=== PATIENT | male | born 1980 | race Caucasian/White ===

== ENCOUNTER → 2018-02-06 | Outpatient (CLI) | payer SELFPAY ==
[2018-02-06 16:07] LABS: BASOPHILS # (AUTO) 0.1 X10^3/uL (0.0-0.1); BASOPHILS % (AUTO) 0.7 % (0.2-1.0); EOSINOPHILS # (AUTO) 0.1 x10^3/uL (0.0-0.2); EOSINOPHILS % (AUTO) 1.3 % (0.9-2.9); HEMATOCRIT 45.5 % (42.0-54.0); HEMOGLOBIN 15.8 g/dL (13.5-18.0); LYMPHOCYTES # (AUTO) 1.9 X10^3/uL (1.3-2.9); LYMPHOCYTES % (AUTO) 24.6 % (21.0-51.0); MEAN CORPUSCULAR HEMOGLOBIN 29.7 pg (27.0-34.0); MEAN CORPUSCULAR HGB CONC 34.8 g/dL (33.0-35.0); MEAN CORPUSCULAR VOLUME 85.4 fL (80.0-100.0); MEAN PLATELET VOLUME 7.4 fL (7.4-11.0); MONOCYTES # (AUTO) 0.6 x10^3/uL (0.3-0.8); MONOCYTES % (AUTO) 8.3 % (0.0-13.0); NEUTROPHILS # (AUTO) 4.9 x10^3/uL (2.2-4.8); NEUTROPHILS % (AUTO) 65.1 % (42.0-75.0); PLATELET COUNT 245 X10^3/uL (150.0-450.0); RED BLOOD COUNT 5.33 X10^6/uL (4.7-6.0); RED CELL DISTRIBUTION WIDTH 13.2 % (11.6-16.5); WHITE BLOOD COUNT 7.6 X10^3/uL (3.6-10.0)
== END ==
LOC: LAB 15:53
PROVIDERS: ATTEND Internal Medicine Gastroenterology
DX: R10.31 Right lower quadrant pain (principal); R10.32 Left lower quadrant pain
CPT/HCPCS: 36415; 85025